=== PATIENT | female | born 1950 | race Caucasian/White ===

== ENCOUNTER 2019-01-08 06:15 | Day surgery (SDC) | payer SELFPAY ==
[2019-01-07 10:05] VITALS: BMI 24.4
[~2019-01-08 06:15] MED LIST: BUPIVACAINE HCL/PF (5 MG/ML) 30 ML VIAL IJ ONE
[2019-01-08] MEDS ORDERED: EPINEPHrine/PF 1 MG/1 ML (1:1,000) AMPULE ONE (07:22)
[2019-01-08] MEDS ORDERED: LIDOCAINE HCL 1%, 10 MG/ML (20ML VIAL) ONE ×2 (07:22→07:25)
[2019-01-08] MEDS ORDERED: LIDOCAINE 1%-EPI 1:100,000 30 ML MDV IJ ONE ×2 (07:22→08:40)
--- NOTE | 2019-01-08 07:38 | HP ---
History & Physical Update - History History: No Change - Physical Physical: No Change - Assessment Assessment: No Change - Plan Plan: No Change (Initial H&P is located in her paper chart. No new medications or complaints.)
[2019-01-08] MEDS ORDERED: MIDAZOLAM HCL 2 MG/2 ML SINGLE DOSE VIAL ONE (08:01)
[2019-01-08] MEDS ORDERED: PROPOFOL 20 ML ONE (08:01)
[2019-01-08] MEDS ORDERED: ROCURONIUM BROMIDE 50 MG/5 ML VIAL ONE (08:01)
[2019-01-08] MEDS ORDERED: ceFAZolin SODIUM 1 GM VIAL IVPB ONE (08:20)
[2019-01-08] MEDS ORDERED: ePHEDrine SULFATE 50 MG/1 ML AMPULE ONE (08:25)
[2019-01-08] MEDS ORDERED: LIDOCAINE 1%/EPI 1:100000 (20 ML MULTI DOSE VIAL) IJ ONE (08:45)
[2019-01-08] MEDS ORDERED: BACITRACIN 15 GM TUBE TOPICAL OINTMENT ONE (09:08)
[2019-01-08] MEDS ORDERED: BUPIVACAINE HCL/PF 0.5% (5MG/ML) 10 ML VIAL ONE (09:08)
[2019-01-08] MEDS ORDERED: BUPIVACAINE HCL/PF (5 MG/ML) 30 ML VIAL IJ ONE (10:00)
[2019-01-08] MEDS ORDERED: ACETAMINOPHEN INJECTION 100 ML IVPB ONE (10:49)
--- NOTE | 2019-01-08 10:55 | OP ---
Operative Note - Note: Operative Date: 01/08/19 Pre-Operative Diagnosis: cosmetic deformity of abdomen Operation: Abdominoplasty and liposuction of flanks and hips Post-Operative Diagnosis: Same as Pre-op Surgeon: Jacob Lynch Staffing Analyst: Rufino Rosa Anesthesia: General Specimens Removed: abdominal skin and fat (discarded) Drains & Tubes with Location: one Blanke 19 fr right hip Operative Report Dictated: Yes
[2019-01-08] MEDS ORDERED: oxyCODONE HCL 5 MG TABLET PO PRN (11:16)
[2019-01-08] MEDS ORDERED: ONDANSETRON 4 MG/2 ML VIAL IVPUSH PRN (11:16)
[2019-01-08] MEDS ORDERED: ACETAMINOPHEN 1000 MG/100 ML VIAL (NON FORMULARY) IVPB ONE (11:17)
[2019-01-08] MEDS ORDERED: LACTATED RINGERS SOLUTION 1,000 ML IV SCH (11:30)
[2019-01-08 14:59] VITALS: BP 94/50; PULSE 73; TEMP 97.8
--- NOTE | 2019-01-09 15:46 | OP ---
DATE OF OPERATION: 01/08/2019 SURGEON: Ed Lynch MD BAND SAW MARKER SURGEON: ALEX Torrez PREOPERATIVE DIAGNOSIS: Cosmetic deformity of abdomen and flanks. POSTOPERATIVE DIAGNOSIS: Cosmetic deformity of abdomen and flanks. OPERATIVE PROCEDURE: 1. Abdominoplasty. 2. Liposuction of flanks and hips. OPERATIVE INDICATIONS: The patient is a 68-year-old white female who complains of abdominal deformity with overhanging skin in the lower abdomen. The risks and benefits of surgical versus nonsurgical alternatives as well as the material complications of abdominoplasty with liposuction were discussed with the patient on multiple occasions preoperatively. She agreed to the planned procedure. Patient was marked in the standing position preoperatively in the holding area with outline of the incision, and full discussion was held with the patient. All questions were asked and answered. OPERATIVE PROCEDURE IN DETAIL: Patient was taken to the operating room, and after induction of general anesthesia in supine position, both arms were extended and padded, Venodyne boots were placed. At this point, entire abdomen was prepped with ChloraPrep solution over its entire extent. The sterile drapes were placed in the usual fashion. After timeout, the incisions which were planned in the lower abdomen in elliptical fashion, incorporating the umbilicus, were injected with 1% local lidocaine anesthesia with 1:100,000 epinephrine. At this point, after allowing topical anesthesia and hemostasis, incision was made using a No. 10 scalpel down through skin of the lower abdomen according to the pattern, down through the subcutaneous tissue to the underlying fatty layer. A small amount of tissue was left over the inguinal area for the lymphatics, and then dissection was carried superiorly along the anterior rectus fascia. The midline previous scar from showed a lot of adherence and scar tissue over the midline. This was dissected free and carried up to the umbilicus. The umbilicus was then circumscribed and dropped back. The upper incision was made according to the pattern, and the lower abdominal skin was removed using electrocautery, with hemostasis meticulously obtained throughout. This pannus weighed approximately 2 pounds. Dissection was then carried superiorly in the midline up to the xiphoid and laterally slightly, leaving attachments to the abdominal wall for blood supply. Once this was accomplished, a dilute epinephrine solution was infiltrated into the flanks and hips, and suction-assisted lipectomy was carried out over these areas, removing fatty material in the hips and flanks. Once this was accomplished, a 19-Amharic Reza drain was brought out through a separate stab wound laterally. The anterior rectus fascia was then plicated using the 0 V-Loc suture in a running fashion inferiorly first in 2 layers, and then superiorly, tightening the abdominal wall for imbrication. This showed good shape and contour. Multiple other areas were imbricated in oblique fashion on the rectus muscle. The umbilicus was then tacked using 2-0 PDS suture down to the fascia, and the patient was placed into semi-Bhagat sitting position, the abdominal wall brought down to its new anatomic position and closed using 2-0 Vicryl sutures in the deep Ly fascia, 3-0 PDS in a deep dermal fashion, and 4-0 Biosyn V-Loc on the skin. All wounds were dressed sterilely with Prineo, and a fluff dressing was placed over the abdomen with an abdominal binder. Patient tolerated the procedure well. She was awakened, extubated, and transferred to the recovery room in satisfactory condition. She tolerated the procedure well. ED LYNCH M.D. [id number]
== END 2019-01-08 14:35 | disposition home or self-care (01) ==
LOC: JASU-SURG 06:15
PROVIDERS: ATTEND Plastic Surgery
CPT/HCPCS: 94760; J0131